=== PATIENT | female | born 1990 | race Two or more races ===

== ENCOUNTER 2025-02-09 23:47 | Emergency (ER) | payer SELFPAY ==
[2025-02-09 23:48] VITALS: BP 112/80; PULSE 84; RESP 16; TEMP 36.6; O2SAT 98
[2025-02-09 23:50] VITALS: BMI 27.2
[2025-02-09 23:52] VITALS: PULSE 74; O2SAT 99
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
== END 2025-02-10 01:43 | disposition left against medical advice (07) ==
LOC: SERX 02-10 01:00
PROVIDERS: Emergency Provider Emergency Medicine; PCP Family Medicine
DX: Z53.21 Procedure and treatment not carried out due to patient leaving prior to being seen by health care provider (principal)
CPT/HCPCS: 99281